=== PATIENT | female | born 1990 | race Caucasian/White ===

== ENCOUNTER 2019-09-29 17:48 | Outpatient (CLI) | payer BC | END 2019-09-29 17:49 | disposition home or self-care (01) | LOC: COV 17:48 | PROVIDERS: ATTEND Family Medicine | DX: R05 Cough (principal) ==

== ENCOUNTER 2020-10-17 18:23 | Outpatient (CLI) | payer BC | END 2020-10-17 18:24 | disposition home or self-care (01) | LOC: COV 18:23 | PROVIDERS: ATTEND Family Medicine | DX: Z20.822 Contact with and (suspected) exposure to COVID-19 (principal) ==

== ENCOUNTER 2021-03-22 09:45 | Outpatient (CLI) | payer BC ==
[2021-03-22 15:31] LABS: ALBUMIN 3.9 g/dL (3.2-5.5); ALBUMIN/GLOBULIN RATIO 1.2 (1.0-2.2); BILIRUBIN,TOTAL 0.8 mg/dL (0.2-1.0); CALCIUM 8.9 mg/dL (8.5-10.3); CREATININE 0.6 mg/dL (0.4-1.0); POTASSIUM 3.8 mmol/L (3.5-5.0); TOTAL PROTEIN 7.1 g/dL (6.7-8.2)
[2021-03-22 15:48] LABS: THYROID STIMULATING HORMONE 1.9 uIU/mL (0.34-5.60)
[2021-03-23 15:05] LABS: HIV AG/AB 4TH GEN NON-REACTIVE (NON-REACTIVE)
[2021-03-25 22:56] LABS: HCV RNA QNT <1.18 NOT DETECTED LogIU/mL; HCV RNA QUANT RT PCR <15 NOT DETECTED IU/mL
== END 2021-03-22 09:46 | disposition home or self-care (01) ==
LOC: LAB.S 09:45
PROVIDERS: ATTEND Nurse Practitioner Family
DX: F41.8 Other specified anxiety disorders (principal); Z13.1 Encounter for screening for diabetes mellitus; Z11.59 Encounter for screening for other viral diseases; Z11.4 Encounter for screening for human immunodeficiency virus [HIV]
CPT/HCPCS: 36415; 80053; 84443; 86592; 87389; 87522

== ENCOUNTER 2021-03-25 08:00 | Outpatient (CLI) | payer BC ==
[2021-03-25 21:11] LABS: CHLAMYDIA TRACHOMATIS DNA NEGATIVE (NEGATIVE); NEISSERIA GONORRHOEAE DNA NEGATIVE (NEGATIVE); TRICHOMONAS VAGINALIS DNA NEGATIVE (NEGATIVE)
== END 2021-03-25 23:59 | disposition home or self-care (01) ==
LOC: LAB.S 08:00
PROVIDERS: ATTEND Nurse Practitioner Family
DX: F41.8 Other specified anxiety disorders (principal); Z11.59 Encounter for screening for other viral diseases; Z11.4 Encounter for screening for human immunodeficiency virus [HIV]; Z13.1 Encounter for screening for diabetes mellitus
CPT/HCPCS: 87070; 87181; 87205; 87491; 87591; 87661

== ENCOUNTER 2021-04-23 08:00 | Outpatient (CLI) | payer BC ==
[2021-04-23 14:11] LABS: BASOPHILS % (AUTO) 0.2 %; EOSINOPHILS % (AUTO) 0.7 %; HCT - HEMATOCRIT 41.1 % (37.0-47.0); HGB - HEMOGLOBIN 13.3 g/dL (12.0-16.0); LYMPHOCYTES # (AUTO) 0.7 10^3/uL (1.5-3.5); LYMPHOCYTES % (AUTO) 12.3 %; MEAN CORPUSCULAR HEMOGLOBIN 30.7 pg (27.0-31.0); MEAN CORPUSCULAR HGB CONC 32.4 g/dL (32.0-36.0); MEAN CORPUSCULAR VOLUME 94.9 fL (81.0-99.0); MEAN PLATELET VOLUME 9.6 fL (7.9-10.8); MONOCYTES # (AUTO) 0.6 10^3/uL (0.0-1.0); MONOCYTES % (AUTO) 9.4 %; NEUTROPHILS # (AUTO) 4.7 10^3/uL (1.5-6.6); NEUTROPHILS % (AUTO) 77.1 %; PLT - PLATELET COUNT 285 10^3/uL (130-450); RED BLOOD COUNT 4.33 10^6/uL (4.20-5.40); RED CELL DISTRIBUTION WIDTH 13.2 % (12.0-15.0)
[2021-04-23 14:51] LABS: ALBUMIN 4.2 g/dL (3.2-5.5); ALBUMIN/GLOBULIN RATIO 1.6 (1.0-2.2); BILIRUBIN,TOTAL 0.6 mg/dL (0.2-1.0); CALCIUM 8.8 mg/dL (8.5-10.3); CREATININE 0.8 mg/dL (0.4-1.0); TOTAL PROTEIN 6.9 g/dL (6.7-8.2)
== END 2021-04-23 23:59 | disposition home or self-care (01) ==
LOC: LAB.S 08:00
PROVIDERS: ATTEND Physician Assistant Medical
DX: R10.9 Unspecified abdominal pain (principal)
CPT/HCPCS: 36415; 80053; 85025

== ENCOUNTER 2021-04-23 08:00 | Outpatient (CLI) | payer BC ==
--- NOTE | 2021-04-23 11:45 | XRAY Report ---
PROCEDURE: Abdomen 2 View X-Ray INDICATIONS: Abdominal pain x4 days. TECHNIQUE: 2 views of the abdomen were acquired. COMPARISON: None. FINDINGS: Surgical changes and devices: None. Bowel: No pneumoperitoneum. The bowel gas pattern is normal. Soft tissues: No masses; visualized solid organ contours appear normal in size. No suspicious abdom inal calcifications. Bones: No suspicious bony abnormalities. IMPRESSION: Nonobstructive bowel gas pattern. Reviewed by: Pako Hernandez MD on 04/23/2021 11:44 AM PDT Approved by: Pako Hernandez MD on 04/23/2021 11:44 AM PDT Station ID: [id number]
== END 2021-04-23 23:59 | disposition home or self-care (01) ==
LOC: DI.S 08:00
PROVIDERS: ATTEND Physician Assistant Medical
DX: R10.9 Unspecified abdominal pain (principal)

== ENCOUNTER 2022-01-04 09:09 | Outpatient (CLI) | payer BC ==
[2022-01-04 15:55] LABS: ALBUMIN/GLOBULIN RATIO 1.4 (1.0-2.2); BILIRUBIN,TOTAL 0.4 mg/dL (0.2-1.0); CALCIUM 9.2 mg/dL (8.5-10.3); CREATININE 0.7 mg/dL (0.4-1.0); POTASSIUM 4.4 mmol/L (3.5-5.0); TOTAL PROTEIN 6.9 g/dL (6.7-8.2)
== END 2022-01-04 09:10 | disposition home or self-care (01) ==
LOC: LAB.S 09:09
PROVIDERS: ATTEND Nurse Practitioner Family
DX: Z13.1 Encounter for screening for diabetes mellitus (principal)
CPT/HCPCS: 36415; 80053

== ENCOUNTER 2023-02-07 07:00 | Outpatient (CLI) | payer BC | END 2023-02-07 23:59 | disposition home or self-care (01) | LOC: LAB.S 07:00 | PROVIDERS: ATTEND Emergency Medicine | DX: J02.9 Acute pharyngitis, unspecified (principal) | CPT/HCPCS: 87070 ==

== ENCOUNTER 2023-08-28 09:02 | Outpatient (CLI) | payer BC ==
[2023-08-28 15:10] LABS: BASOPHILS % (AUTO) 0.4 %; EOSINOPHILS # (AUTO) 0.1 10^3/uL (0.0-0.7); EOSINOPHILS % (AUTO) 0.8 %; HCT - HEMATOCRIT 41.2 % (37.0-47.0); HGB - HEMOGLOBIN 12.7 g/dL (12.0-16.0); LYMPHOCYTES # (AUTO) 1.9 10^3/uL (1.5-3.5); LYMPHOCYTES % (AUTO) 22.9 %; MEAN CORPUSCULAR HEMOGLOBIN 28.9 pg (27.0-31.0); MEAN CORPUSCULAR HGB CONC 30.8 g/dL (32.0-36.0); MEAN CORPUSCULAR VOLUME 93.6 fL (81.0-99.0); MEAN PLATELET VOLUME 9.4 fL (7.9-10.8); MONOCYTES # (AUTO) 0.7 10^3/uL (0.0-1.0); MONOCYTES % (AUTO) 8.4 %; NEUTROPHILS # (AUTO) 5.6 10^3/uL (1.5-6.6); NEUTROPHILS % (AUTO) 67.1 %; PLT - PLATELET COUNT 330 10^3/uL (130-450); RED CELL DISTRIBUTION WIDTH 13.6 % (12.0-15.0); WHITE BLOOD COUNT 8.3 x10^3/uL (4.8-10.8)
[2023-08-28 16:05] LABS: ALBUMIN/GLOBULIN RATIO 1.4 (1.0-2.2); BILIRUBIN,TOTAL 0.5 mg/dL (0.2-1.0); CALCIUM 9.3 mg/dL (8.5-10.3); CREATININE 0.8 mg/dL (0.6-1.3); TOTAL PROTEIN 6.8 g/dL (6.4-8.9)
== END 2023-08-28 09:03 | disposition home or self-care (01) ==
LOC: LAB.S 09:02
PROVIDERS: ATTEND Registered Nurse
DX: Z00.00 Encounter for general adult medical examination without abnormal findings (principal)
CPT/HCPCS: 36415; 80053; 85025

== ENCOUNTER 2023-12-25 09:47 | Outpatient (CLI) | payer BC ==
--- NOTE | 2023-12-25 10:30 | Sleep Patient Instructions ---
Sleep Center Visit Summary - Patient Visit Information Reason for Visit: Initial consult for evaluation of sleep disordered breathing and other sleep issues. - Patient Instructions Instructions Attached: Sleep Study Home Monitor, Sleep Study Additional Instructions: You will be completing a sleep study, either an in-lab polysomnography (PSG) or home sleep study (HST). You will follow-up in the sleep care office after the sleep study is completed to hear the results and talk about therapy, if needed. You will be called by our office staff to schedule this appointment, but you may contact us with any questions. - Clinic Information Contact: [facility] [address] [place] [phone] [email or web address] T: [phone]
--- NOTE | 2023-12-25 10:32 | SLEEP CARE CONSULTATION ---
Information from patient questionnaire entered by Melissa Prather. I have reviewed and concur with the information entered by Melissa Prather. This document represents the service I personally performed and the decisions made by me, Sade Gaston ARNP. History of Present Illness Service Date and Time: 12/25/2023 0947 Reason for Visit: New patient Chief Complaint: reports: Insomnia, Snoring, Excessive daytime sleepiness, Fatigue Date of Onset: 4YRS Usual bedtime: 2200 Time it takes to fall asleep: 1-2HRS Snores at night: Yes Observed to quit breathing while asleep: No Number of times waking at night: 0-1 Reasons for waking at night: reports: Other (NOISE). denies: Choking, Gasping for air Toss, Turn, or Twitch while sleeping: Yes Recalls having dreams: Yes (very lucid dreamer, not usually pleasant dreams) Usually gets out of bed at: 0540 Feels refreshed in the morning: No Morning headache: No Sleepy or fatigued during the day: Yes (can nap on 15 min break at work or during lunch) Ever fallen asleep while driving: No Takes day naps: Yes (tries not to nap unless "micronap" at work) Dreams during day naps: Yes Additional HPI information: I had the pleasure of seeing ELINOR RIVERS today regarding the possibility of her having a sleep disorder. Her current complaints are excessive daytime sleepiness, fatigue, insomnia and snoring. A few years ago she when to a taffy candy maker and they recommended she come in for sleep study. She snores and her mother has sleep apnea. She has a lot of daytime fatigue and severe low energy. She has had labs and not irregularities were found. She says her mind races at night and makes it hard to fall asleep. She started listening to podcast to distract from her thoughts and has been helping to calm her thoughts. It takes a least an hour to go to sleep. Once she gets to sleep she can sleep well and through the night without waking up unless her daughter needs her. She has been told that she talks in her sleep. - Parasomnia Symptoms Ever been unable to move upon waking from sleep: No Walks in sleep: No Talks in sleep: Yes Ever acted out dreams in sleep: No Ever felt weak in the knees when startled or emotional: No Bothered by creepy, crawly, restless sensations in legs: No Problems with memory or concentration: Yes (concentration; memory ok) Subjective Initial [place] Sleepiness Scale score: 9 (12/25/23) Past Medical History Past Medical History: reports: Anxiety, Depression Social History The patient's occupation is a [employer]. Patient is Single and lives in . Have you smoked in the past 12 months: No (vapes) Cigarettes per day (20/pack): 5 Years of smokin Quit date: 05/06/23 Smoking Pack Years: 4.0 Alcohol use: Yes Alcohol amount and frequency: 0-6 BEERS A WEEK Caffeine use: Yes Caffeine amount and frequency: 1-2 CUPS DAILY Family History Family history of sleep disordered breathing: Yes Family Hx Sleep Apnea: Mother: Sleep apnea - Treated Allergies and Home Medications Known drug allergies: No Drug allergies reviewed: Yes Home medication list reviewed: Yes (escitalopram; zolpidem, prn; vitamins) Review of Systems Weight gain over past 5 years: 20 Cardiovascular: denies: high blood pressure Respiratory: reports: shortness of breath Gastrointestinal: reports: heartburn, abdominal pain Urinary: reports: frequency Neurological: denies: headaches Psychiatric: reports: anxiety, depression Ear/Nose/Throat: reports: wisdom teeth removed. denies: tonsillectomy Endocrine: denies: thyroid disease Physical Exam Vital signs obtained and entered by: MELISSA Mcgraw MA Blood Pressure: 119/76 (RIGHT ARM) Cuff size: regular Heart Rate: 78 O2 Saturation: 98 Height: 5 ft 4 in Weight: 227 lb 6.4 oz Body Mass Index: 39.0 BMI Classification: Obese Neck circumference: 16 Nostrils: patent to airflow Mouth and throat: narrow oropharynx Soft palate: long Hard palate: normal Uvula: normal Uvula visualization: 25% Mallampati Class III Tongue: enlarged in size with teeth herron on lateral edges Tonsils: 1+ Neck: normal w/o lymphadenopathy or thyromegaly Heart: regular rate and rhythm Lungs: clear bilaterally Impression and Plan 1. Suspected Obstructive Sleep Apnea-Hypopnea Syndrome, as suggested by a history of loud and irregular snoring, unrefreshed sleep, cognitive impairment, and excessive daytime sleepiness. Narrow oropharynx and obesity are common predisposing factors for obstructive sleep apnea-hypopnea syndrome. I recommend proceeding to polysomnography to confirm the diagnosis and to assess severity. If the patient has significant sleep disordered breathing, a manual CPAP titration study will also be performed to find the optimal treatment pressure. I informed the patient of what the sleep studies involve and after some discussion, obtained agreement to proceed. The pathophysiology of obstructive sleep apnea-hypopnea syndrome was discussed with the patient and health risks of cardiovascular and cerebrovascular disease if not treated. Risks of drowsy driving discussed in detail and patient advised to avoid long distance driving and to order puller at the first sign of drowsiness. Patient agreed to plan. * Schedule polysomnography * Avoid long distance driving or driving when feeling sleepy. * Avoid alcohol, sedative and muscle relaxant around bedtime. * Attempt to lose weight. * Review instructions provided by trained office staff on how to prepare for the sleep study. * Return for follow-up after sleep study completed. Counseling Topics: Weight loss health impact Plan: PSG/HST and follow up Visit Type: In Office Time Spent with Patient (minutes): 31 Provider Statement: I spent 100% of the Face to Face Visit with the patient with greater than 50% spent counseling the patient and coordination of care.
[2023-12-25 10:40] VITALS: BP 119/76; O2SAT 98
== END 2023-12-25 09:48 | disposition home or self-care (01) ==
LOC: SC 09:47
PROVIDERS: ATTEND Nurse Practitioner Family
DX: G47.00 Insomnia, unspecified (principal); R06.83 Snoring; G47.10 Hypersomnia, unspecified; R53.83 Other fatigue; G47.8 Other sleep disorders; E66.9 Obesity, unspecified; Z68.39 Body mass index [BMI] 39.0-39.9, adult; F32.A Depression, unspecified; Z87.891 Personal history of nicotine dependence
CPT/HCPCS: 99203; 99212

== ENCOUNTER 2024-02-05 13:45 | Outpatient (CLI) | payer BC | END 2024-02-05 13:46 | disposition home or self-care (01) | LOC: SC 13:45 | PROVIDERS: ATTEND Nurse Practitioner Family | DX: Z53.9 Procedure and treatment not carried out, unspecified reason (principal) | CPT/HCPCS: 95806 ==